=== PATIENT | female | born 1975 | race Caucasian/White ===

== ENCOUNTER 2019-05-06 08:11 | Day surgery (SDC) | payer OTHER ==
[~2019-05-06] VITALS: Ht 152.4 cm; Wt 77.1 kg
[2019-05-06] MEDS ORDERED: fentaNYL 0.05 MG/ML VIAL ONE (11:45)
[2019-05-06] MEDS ORDERED: LIDOCAINE 2% 100 MG/5 ML UJET TP ONE (11:45)
[2019-05-06] MEDS ORDERED: MIDAZOLAM 2 MG/2 ML VIAL ONE (13:12)
== END 2019-05-06 14:05 | disposition home or self-care (01) ==
LOC: MOR 08:11 → MMU 08:23 → MOR 14:05
PROVIDERS: ATTEND Internal Medicine Gastroenterology
DX: R14.0 Abdominal distension (gaseous) (principal); K64.8 Other hemorrhoids; F32.9 Major depressive disorder, single episode, unspecified; F41.9 Anxiety disorder, unspecified; E66.9 Obesity, unspecified; D64.9 Anemia, unspecified; Z80.0 Family history of malignant neoplasm of digestive organs; Z79.899 Other long term (current) drug therapy
CPT/HCPCS: 45378; J3010; J2250